=== PATIENT | male | born 1995 | race Caucasian/White ===

== ENCOUNTER 2021-08-11 14:29 | Emergency (ER) | payer SELFPAY ==
[~2021-08-11] VITALS: Ht 180.3 cm; Wt 61.4 kg
[~2021-08-11 14:29] MED LIST: AMOXICILLIN 50500 MG PO; AMOXICILLIN 8751 TAB PO; NORCO 325 MG-51 TAB PO; PEN-VEE K500 MG PO; PHENERGAN 25 TA25 MG PO; ZOFRAN ODT8 MG PO
[2021-08-11 14:40] VITALS: TEMP 98.6
[2021-08-11 15:27] VITALS: BP 106/66; PULSE 80
== END 2021-08-11 15:27 | disposition home or self-care (01) ==
LOC: COL.ER 14:29
DX: S63.632A Sprain of interphalangeal joint of right middle finger, initial encounter (principal); F17.210 Nicotine dependence, cigarettes, uncomplicated; W31.89XA Contact with other specified machinery, initial encounter

== ENCOUNTER 2022-07-08 20:54 | Emergency (ER) | payer SELFPAY ==
[~2022-07-08] VITALS: Ht 170.2 cm; Wt 55.5 kg
[2022-07-08 20:57] VITALS: BP 113/70; TEMP 97.9
[2022-07-08 22:08] LABS: HEMATOCRIT 37.5 % (42.0-52.0); MEAN CELL VOLUME 94 fl (80.0-100.0); MEAN CORPUSCULAR HEMOGLOBIN 33 pg (27-31); MEAN CORPUSCULAR HGB CONC 35 g/dl (33.0-37.0); MEAN PLATELET VOLUME 11.4 fl (7.4-10.4); PLATELET COUNT 244 K/mm3 (130-400); REDCELL DISTRIBUTION WIDTH-CV 12.5 % (11.5-14.5)
[2022-07-08 22:21] LABS: NEUTROPHILS 64 % (42.0-75.2); PLATELET ESTIMATE NORMAL (NORMAL)
[2022-07-08 22:22] LABS: LYMPHOCYTE 27 % (20.0-51.0)
[2022-07-08 22:27] LABS: ALANINE AMINOTRANSFERASE 10 U/L (0-55); ALBUMIN 4.2 gm/dL (3.5-5.0); ALKALINE PHOSPHATASE 55 U/L (40-150); ANION GAP 10 mmol/L (7-16); AST,SGOT 11 U/L (5-34); BILIRUBIN,TOTAL 0.3 mg/dL (0.2-1.2); BLOOD UREA NITROGEN 14 mg/dL (9-21); CALCIUM 9.6 mg/dL (8.4-10.2); CARBON DIOXIDE 26 mmol/L (22-29); CHLORIDE 106 mmol/L (98-107); CREATININE, serum 0.97 mg/dL (0.72-1.25); GLUCOSE 94 mg/dL (70-99); POTASSIUM 4.3 mmol/L (3.5-4.5); SODIUM 142 mmol/L (136-145); TOTAL PROTEIN 7.8 gm/dL (6.2-8.1)
[2022-07-08 22:34] LABS: TROPONIN-I < 0.010 ng/mL (0.00-0.033)
[2022-07-08 23:30] VITALS: PULSE 90
== END 2022-07-08 23:30 | disposition home or self-care (01) ==
LOC: COL.ER 20:54
PROVIDERS: Emergency Medicine
DX: R07.89 Other chest pain (principal); F17.210 Nicotine dependence, cigarettes, uncomplicated; Z28.310 Unvaccinated for COVID-19
CPT/HCPCS: J1885